=== PATIENT | female | born 1990 | race Two or more races ===

== ENCOUNTER 2021-08-26 10:16 | Inpatient (IN) | payer OTHER ==
[~2021-08-26] VITALS: Ht 157.5 cm; Wt 71.2 kg
[~2021-08-26 10:16] MED LIST: FOLIC ACID0.4 MG; MAXFE CAPLET1 EACH PO; ZANTAC150 M3 PO; [UNRECOGNIZED DRUG - OTHER] PO
[2021-08-29] MEDS ORDERED: KETO10TA2 PO (10:18)
[2021-08-29] MEDS ORDERED: ACETAMINOPHEN-1 EAC2 PO (10:20)
== END 2021-08-29 10:37 | disposition home or self-care (01) | DRG 392 ==
LOC: OB/GYN 10:16
PROVIDERS: ADMIT Obstetrics & Gynecology; ATTEND Obstetrics & Gynecology
PROC: BW41ZZZ Ultrasonography of Abdomen and Pelvis (ICD-10-PCS; principal; 2021-08-26)
PROC: BU4CZZZ Ultrasonography of Uterus and Ovaries (ICD-10-PCS; 2021-08-26)
DX: R10.84 Generalized abdominal pain (principal); Z20.822 Contact with and (suspected) exposure to COVID-19

== ENCOUNTER → 2021-09-07 06:05 | Outpatient (CLI) | payer OTHER ==
[~2021-09-07 06:05] MED LIST changes: +ACETAMINOPHEN-1 EAC2 PO; +KETO10TA2 PO
== END | disposition home or self-care (01) ==
LOC: LAB 09-03 12:10
PROVIDERS: ATTEND Internal Medicine Hematology & Oncology
DX: E56.1 Deficiency of vitamin K (principal); D68.8 Other specified coagulation defects

== ENCOUNTER 2021-09-08 07:19 | Day surgery (SDC) | payer OTHER ==
[~2021-09-08] VITALS: Ht 157.5 cm; Wt 71.2 kg
== END 2021-09-08 19:40 | disposition home or self-care (01) ==
LOC: CIR.AMB 07:19
PROVIDERS: ATTEND Obstetrics & Gynecology
DX: N73.6 Female pelvic peritoneal adhesions (postinfective) (principal); Z20.822 Contact with and (suspected) exposure to COVID-19; Z91.013 Allergy to seafood; J45.909 Unspecified asthma, uncomplicated; Z86.16 Personal history of COVID-19

== ENCOUNTER 2022-07-07 07:16 | Inpatient (IN) | payer OTHER ==
[~2022-07-07] VITALS: Ht 154.9 cm; Wt 69.9 kg
[2022-07-07] MEDS ORDERED: MK-7180 MCG PO (11:55)
== END 2022-07-15 10:26 | disposition home or self-care (01) | DRG 743 ==
LOC: OB/GYN 07-13 05:25 → O/R 07-13 05:25 → OB/GYN 07-13 09:31 → SURH 07-13 13:45 → OB/GYN 07-15 10:26
PROVIDERS: ADMIT Obstetrics & Gynecology; ATTEND Obstetrics & Gynecology
PROC: 0UT70ZZ Resection of Bilateral Fallopian Tubes, Open Approach (ICD-10-PCS; 2022-07-13)
PROC: 0UT20ZZ Resection of Bilateral Ovaries, Open Approach (ICD-10-PCS; 2022-07-13)
PROC: 0TNB0ZZ Release Bladder, Open Approach (ICD-10-PCS; 2022-07-13)
PROC: 0UT90ZL Resection of Uterus, Supracervical, Open Approach (ICD-10-PCS; principal; 2022-07-13 13:45)
DX: D25.1 Intramural leiomyoma of uterus (principal); N83.01 Follicular cyst of right ovary; N83.02 Follicular cyst of left ovary; Z20.822 Contact with and (suspected) exposure to COVID-19